=== PATIENT | female | born 1950 | race Caucasian/White ===

== ENCOUNTER 2018-05-23 19:02 | Emergency (ER) | payer MEDICARE, MEDICAID ==
[~2018-05-23] VITALS: Ht 160 cm; Wt 81.8 kg
[~2018-05-23 19:02] MED LIST: ATOR20TA PO; BENZ1TAB7 PO; FENO48TA15 PO; HYDR-3965 PO; LAMO100T2 PO; LAMO25TA PO; LEVO25TA7 PO; LORA0.5T PO; RISP1TAB47 PO; TRAZ-91 PO
[2018-05-23 21:10] VITALS: BP 126/59
[2018-05-23] MEDS ORDERED: ketorolac trometh inj. 60 MG/2 ML VIAL IM ONE (21:20)
== END 2018-05-23 21:39 | disposition home or self-care (01) ==
LOC: ER 19:02
DX: M25.572 Pain in left ankle and joints of left foot (principal); G89.29 Other chronic pain; J44.9 Chronic obstructive pulmonary disease, unspecified; Z98.890 Other specified postprocedural states; Z56.0 Unemployment, unspecified; Z88.0 Allergy status to penicillin; Z88.1 Allergy status to other antibiotic agents; Z88.8 Allergy status to other drugs, medicaments and biological substances; Z79.899 Other long term (current) drug therapy
CPT/HCPCS: 73590; 73610; 96372; 99284; J1885

== ENCOUNTER 2018-08-04 17:07 | Emergency (ER) | payer MEDICARE, MEDICAID ==
[~2018-08-04] VITALS: Ht 160 cm; Wt 81.8 kg
[2018-08-04 20:09] VITALS: BP 136/73
[2018-08-04] MEDS ORDERED: SULF1TAB49 PO (20:36)
== END 2018-08-04 21:18 | disposition home or self-care (01) ==
LOC: ER 17:08
DX: R23.8 Other skin changes (principal); J34.89 Other specified disorders of nose and nasal sinuses; J44.9 Chronic obstructive pulmonary disease, unspecified; G89.29 Other chronic pain; Z88.0 Allergy status to penicillin; Z88.1 Allergy status to other antibiotic agents; Z88.8 Allergy status to other drugs, medicaments and biological substances; Z79.899 Other long term (current) drug therapy; Z98.890 Other specified postprocedural states; Z56.0 Unemployment, unspecified
CPT/HCPCS: 99283

== ENCOUNTER 2019-03-14 14:09 | Emergency (ER) | payer MEDICARE, MEDICAID ==
[~2019-03-14] VITALS: Ht 160 cm; Wt 85.4 kg
[2019-03-14 14:26] VITALS: BP 130/66
[2019-03-14] MEDS ORDERED: HYDR-4383 PO (16:24)
== END 2019-03-14 16:52 | disposition home or self-care (01) ==
LOC: ER 14:09
DX: S92.425A Nondisplaced fracture of distal phalanx of left great toe, initial encounter for closed fracture (principal); J44.9 Chronic obstructive pulmonary disease, unspecified; G89.29 Other chronic pain; Z88.0 Allergy status to penicillin; Z88.1 Allergy status to other antibiotic agents; Z88.6 Allergy status to analgesic agent; Z79.899 Other long term (current) drug therapy; Z56.0 Unemployment, unspecified; W20.8XXA Other cause of strike by thrown, projected or falling object, initial encounter; Y93.89 Activity, other specified; Y92.89 Other specified places as the place of occurrence of the external cause; Y99.8 Other external cause status
CPT/HCPCS: 73660; 99283